=== PATIENT | male | born 1960 ===

== ENCOUNTER 2018-01-05 05:26 | Emergency (ER) | payer OTHER ==
[2018-01-05 05:32] VITALS: BMI 30.9
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
[2018-01-05] MEDS ORDERED: TDAP Vaccine 0.5 mL Syr IM ONE (05:36)
[2018-01-05] MEDS ORDERED: ceFAZolin 2 GM in Sodium Chloride 0.9% 100 ML IVPB STA (05:40)
[2018-01-05 06:16] LABS: BASO # 0.03 K/mm3 (0.0-2.0); BASO % 0.4 % (0.0-3.0); EOS # 0.3 (0.0-0.7); EOS % 4.4 % (1.5-5.0); GRAN # 3.63 (1.4-6.5); GRAN % 48.1 % (50.0-68.0); HEMOGLOBIN 15.6 g/dL (14.0-18.0); LYMPH # 3.2 (1.2-3.4); LYMPH % 42.3 % (22.0-35.0); MEAN CORPUSCULAR HEMOGLOBIN 31.2 pg (25.0-35.0); MEAN CORPUSCULAR HGB CONC 35.5 g/dl (31.0-37.0); MEAN PLATELET VOLUME 10.6 fl (7.0-11.0); MONO # 0.4 (0.1-0.6); MONO % 4.8 % (1.0-6.0); RED CELL DISTRIBUTION WIDTH 12.7 % (11.5-14.5); WHITE BLOOD COUNT 7.5 10^3/ul (4.5-11.0)
[2018-01-05 06:36] LABS: TROPONIN I < 0.01 ng/mL
[2018-01-05 06:45] LABS: ALB/GLOB RATIO 1.3 (1.1-1.8); ALBUMIN 4.1 g/dL (3.0-4.8); ALT/SGPT 32 U/L (7-56); AST/SGOT 31 U/L (17-59); BLOOD UREA NITROGEN 18 mg/dL (7-21); CALCIUM 8.8 mg/dL (8.4-10.5); GFR AFRICAN-AMERICAN > 60; GFR NON-AFRICAN AMERICAN > 60
[2018-01-05] MEDS ORDERED: Sodium Chloride 0.9% 2,000 ML IV STA (06:45)
[2018-01-05] MEDS ORDERED: Insulin Regular 1 UNITS/0.01 ML ML IVP ONE (06:47)
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
[2018-01-05 07:19] LABS: INR 0.89 (0.93-1.08); PROTHROMBIN TIME 10.2 SECONDS (9.4-12.5)
[2018-01-05] MEDS ORDERED: Lidocaine 1% Inj (20ml) IJ STA (07:23)
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
--- NOTE | 2018-01-05 07:41 | PCM.PROC ---
Procedures Attestation:: I certify that I have explained the specified Operation(s) or Procedure(s), risks, benefits and reasonable alternatives to the Patient and/or other person responsible. The opportunity was given to ask questions and all questions answered - Laceration lidocaine 1% linear wound explored left upper extremity Site: upper extremity Side (if applicable): left Size (cm): 10 Description: linear, clean Depth: simple, single layer Anesthesia used: lidocaine 1% Anesthesia technique: local infiltration Amount (mLs): 15 Pre-repair: wound explored, irrigated extensively, deep structures intact Skin layer closed with: other (nylon) Size: 3-0 Number of sutures: 6 Technique: horizontal mattress Subcutaneous layer closed with: vicryl Size: 4-0 Number of sutures: 7 Technique: simple, interrupted
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
[2018-01-05 09:48] VITALS: RESP 18
[2018-01-05 09:51] VITALS: BP 125/98; PULSE 79; TEMP 98.2; O2SAT 96
--- NOTE | 2018-01-05 19:00 | CARD ---
APPROVED REPORT EKG Measurement Heart [id number] MD [id number] <Conclusion> Normal sinus rhythm Normal ECG
== END 2018-01-05 09:50 | disposition home or self-care (01) ==
LOC: MERGE 05:26 → ED 05:26
DX: S51.812A Laceration without foreign body of left forearm, initial encounter (principal); S20.319A Abrasion of unspecified front wall of thorax, initial encounter; S00.81XA Abrasion of other part of head, initial encounter; S09.90XA Unspecified injury of head, initial encounter; V09.20XA Pedestrian injured in traffic accident involving unspecified motor vehicles, initial encounter; Y92.410 Unspecified street and highway as the place of occurrence of the external cause; Y99.0 Civilian activity done for income or pay; I10 Essential (primary) hypertension; E11.9 Type 2 diabetes mellitus without complications; Z95.0 Presence of cardiac pacemaker; Z79.01 Long term (current) use of anticoagulants; Z23 Encounter for immunization
CPT/HCPCS: 12004; 71045; 71260; 73090; 74177; 80053; 82550; 82948; 83615; 84484; 85025; 85610; 86850; 86900; 90471; 90715; 93005; 96365; 96375; 99285; J0690; J7030; Q9967